=== PATIENT | male | born 1995 | race Hispanic/Latino ===

== ENCOUNTER 2019-06-12 21:14 | Emergency (ER) | payer OTHER ==
[2019-06-12] MEDS ORDERED: Ibuprofen 200 MG TAB ONE (21:37)
--- NOTE | 2019-06-12 22:09 | RAD ---
XR Finger(s) Rt Min 2 View HISTORY: Injury to middle and ring fingers. Findings: There are tuft fractures of the distal phalanx of the middle and ring fingers. The middle f zoran fracture could potentially be old as it appears slightly sclerotic. The ring finger fracture has a vertically oriented component through the shaft of the distal phalanx. In addition there are tiny avulsive type fractures involving the volar aspect of the base of the midd le phalanx of both the ring and middle fingers. IMPRESSION: 1. Fractures of the distal phalanx of the ring and middle fingers as described above 2. Small a evulsion fractures involving the volar aspect of the base of the middle phalanx of the rin g and middle fingers..
== END 2019-06-12 22:44 | disposition home or self-care (01) ==
LOC: NAV ERS 21:14
DX: S62.632A Displaced fracture of distal phalanx of right middle finger, initial encounter for closed fracture (principal); S62.634A Displaced fracture of distal phalanx of right ring finger, initial encounter for closed fracture; W20.8XXA Other cause of strike by thrown, projected or falling object, initial encounter; Y99.0 Civilian activity done for income or pay
CPT/HCPCS: 99001

== ENCOUNTER 2019-06-28 15:45 | Emergency (ER) | payer OTHER | END 2019-06-28 16:30 | disposition home or self-care (01) | LOC: NAV ERS 15:45 | DX: L03.011 Cellulitis of right finger (principal); Z79.899 Other long term (current) drug therapy | CPT/HCPCS: 10060; 87070; 87205 ==